=== PATIENT | male | born 1965 | race Caucasian/White ===

== ENCOUNTER 2019-02-27 14:04 | Emergency (ER) | payer SELFPAY ==
[~2019-02-27] VITALS: Ht 177.8 cm; Wt 102.3 kg
[~2019-02-27 14:04] MED LIST: ATENOLOL PO; HCTZ; LEXAPRO10 MG PO; LISINOPRIL/HCTZ1 TAB PO; PRILOSEC 20MG20 MG PO; ZESTRIL5 MG PO
[2019-02-27 14:11] VITALS: TEMP 98
[2019-02-27] MEDS ORDERED: TENORMIN100 MG PO (14:46)
[2019-02-27 15:14] LABS: BASO # 0.1 (0.0-0.2); BASO % 0.5 % (0.0-2.0); EOS # 0.5 (0.0-0.7); EOS % 5.7 % (0-4.0); GRAN # 5.9 (1.4-6.5); GRAN % 63.3 % (42.2-75.2); HEMATOCRIT 44.3 % (42.0-52.0); HEMOGLOBIN 15.5 g/dl (13.5-18.0); LYMPH # 2.2 (1.2-3.4); LYMPH % 23.3 % (20.0-51.0); MEAN CELL VOLUME 86 fl (80.0-100.0); MEAN CORPUSCULAR HEMOGLOBIN 30 pg (27.0-31.0); MEAN CORPUSCULAR HGB CONC 35 g/dl (33.0-37.0); MEAN PLATELET VOLUME 9.8 fl (7.4-10.4); MONO # 0.6 (0.1-0.6); MONO % 6.9 % (1.7-9.3); PLATELET COUNT 249 K/mm3 (130-400); RED BLOOD COUNT 5.14 M/mm3 (4.20-5.60); REDCELL DISTRIBUTION WIDTH-CV 12.6 % (11.5-14.5)
[2019-02-27 15:17] LABS: ALBUMIN 4.3 gm/dL (3.5-5.0); BILIRUBIN,TOTAL 0.5 mg/dL (0.0-1.0); CALCIUM 8.7 mg/dL (8.4-10.2); CREATININE, serum 1.17 (0.66-1.25); TOTAL PROTEIN 7.4 gm/dL (6.4-8.2)
[2019-02-27 15:37] LABS: TROPONIN-I < 0.012 ng/mL (0.000-0.035)
[2019-02-27] MEDS ORDERED: LEXAPRO 10MG10 MG PO (15:49)
[2019-02-27] MEDS ORDERED: PRINIVIL40 MG PO (15:50)
[2019-02-27] MEDS ORDERED: HCTZ 25MG TAB25 MG PO (15:58)
[2019-02-27 16:37] VITALS: BP 172/111; PULSE 62
== END 2019-02-27 16:37 | disposition home or self-care (01) ==
LOC: COL.ER 14:04
PROVIDERS: Emergency Medicine
DX: I10 Essential (primary) hypertension (principal)